=== PATIENT | male | born 2000 | race Caucasian/White ===

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

== ENCOUNTER 2019-04-10 17:58 | Emergency (ER) | payer OTHER ==
[~2019-04-10] VITALS: Ht 177.8 cm; Wt 81.1 kg
[~2019-04-10 17:58] MED LIST: ACET325T14 PO; AMOX1TAB12 PO; CETI10TA18 PO; FLUT16SP24 NAS; PRED20TA PO
--- NOTE | 2019-04-10 18:24 | NUR ---
PT. IS A & O X 4 WITH C/O LEFT SHOULDER PAIN AFTER FALLING WHILE SNOW BOARDING. CMS CHECKS REMAIN INTACT. PT. IS UNABLE TO LIFT HIS ARM ABOVE HIS HEAD. PT. IS PINK,WARM AND DRY. LUNGS ARE CTA. MM ARE PINK AND MOIST WITH PULSES +2 THROUGHOUT. PT. HAS HIS ARM IMMOBILIZED AND IS RESTING WITH THE HOB ELEVATED. IV ACCESS WAS ESTABLISHED AND PT. WAS MEDICATED FOR PAIN.
[2019-04-10] MEDS ORDERED: HYDROmorphone 1 MG/ML, 1ML INJ ONE (18:29)
[2019-04-10] MEDS ORDERED: ONDANSETRON 2MG/ML, 2ML ONE (18:29)
[2019-04-10] MEDS ORDERED: ONDANSETRON 2MG/ML, 2ML IVPush ONE (18:30)
[2019-04-10] MEDS ORDERED: HYDROmorphone 1 MG/ML, 1ML INJ IVPush PRN (18:30)
[2019-04-10] MEDS ORDERED: SODIUM CHLORIDE FLUSH 10ML SYR IVF ONE (18:30)
--- NOTE | 2019-04-10 18:52 | NUR ---
RECEIVED REPORT FROM SURYA BOLDEN. AWAITING XRAY RESULT.
--- NOTE | 2019-04-10 19:00 | NUR ---
ERP AT BEDSIDE FOR RE-EVALUATION.
--- NOTE | 2019-04-10 19:11 | NUR ---
SHOULDER IMMOBILIZER APPLIED. AWAITING DC PAPERS.
--- NOTE | 2019-04-10 19:27 | NUR ---
PATIENT DICHARGED WITH PRESCRIPTION AND INSTRUCTION. VERBALIZED UNDERSTANDING.
[2019-04-10 19:28] VITALS: BP 104/59
== END 2019-04-10 19:30 | disposition home or self-care (01) ==
LOC: ED 19:24
DX: S43.102A Unspecified dislocation of left acromioclavicular joint, initial encounter (principal); W18.30XA Fall on same level, unspecified, initial encounter; Y93.23 Activity, snow (alpine) (downhill) skiing, snowboarding, sledding, tobogganing and snow tubing; Y92.89 Other specified places as the place of occurrence of the external cause; Y99.8 Other external cause status
CPT/HCPCS: 29105; 73030; 96374; 96375; 99283; J1170; J2405